=== PATIENT | female | born 1970 | race Caucasian/White ===

== ENCOUNTER 2025-01-28 09:21 | Outpatient (CLI) | payer MEDICARE, MEDICAID, SELFPAY ==
--- NOTE | ~2025-01-28 | CT_ITS ---
CT Scan of the Chest without Contrast: Clinical Indication: Nicotine dependence Technique: Contiguous sections were acquired throughout the chest without intravenous contrast. Dose reduction technique was used on this scan by utilizing automated exposure control and iterative recon struction technique. The dose-length product (DLP) was 72.86 mGy-cm. Findings: There is no evidence of any significant mediastinal, hilar or axillary lymphadenopathy. The mediastin al soft tissues appear normal. There is no evidence of pleural or pericardial effusion. The lungs are clear. No pulmonary nodules or infiltrates are noted. Images through the upper abdomen reveal no abnormalities. Impression: No significant abnormalities seen. Reviewed, dictated and finalized at location . Impression: No significant abnormalities seen.
--- OUTSIDE RECORDS SUMMARY | 2025-01-28 09:29 | XMS_ITS | Continuity of Care Document ---
Author Organization [facility] Address [address] [place] [address] Phone Care Team Providers Care Drafter Geological Name Role Phone Unavailable Unavailable Unavailable Allergies, Adverse Reactions, Alerts Substance Reaction Status Criticality No Known Drug Allergies Active No I nformation Medications Medication Instructions Dosage Effective Dates (start - stop) Status Comments amoxicillin 500 mg Cap take 1 capsule (500MG) by ORAL route 3 times every day for 10 days 500 MG - Active Vicodin ES 7.5 mg-750 mg Tab take 1 tablet by ORAL route every 4 - 6 hours as needed for pain not to exceed 5 tablets in 24hrs - Active Synthroid 50 mcg Tab take 1 tablet (50MC G) by ORAL route every day 50 MCG - Active Vicodin 5 mg-500 mg Tab VICODIN 5/500 TABLET # 30<><> 1 TAB by mouth (PO) every day.<><> As needed for pain.<><>DISPENSE: 30 day supply.<>REFILLS: 1<><>This script generated by provider NATHALY at 03/10/2009 1:33:35 PM<>Provider: KAILEE DIALLO MD<> SIGNATURE ON FILE < - Active Procedures Procedure Date Extraction erupted tooth or exposed root OFFICE OUTPT NEW 20 MINUTES COLLECTION OF VENOUS BLOOD BY AUSTINIPUNCTU RE COMPRE METAB PANEL BLOOD COUNT; COMPLETE (CBC), AUTOMATED (HGB, HCT, RBC, WBC AND PLATELET COUNT) ANTINUCLEAR ANTIBODIES (BOLIVAR); 9 RHEUMATOID FACTOR; QUANTITATIVE Jalil-10-2 009 SEDIMENTATION RATE, ERYTHROCYTE; AUTOMAT ED CYCLIC CITRULLINATED PEPTIDE (CCP), ANTI BODY CYANOCOBALAMIN (VITAMIN B-12); 09 FOLIC ACID; SERUM CALCIFEDIOL (25-OH VITAMIN D-3) 009 THYROID STIMULATING HORMONE (TSH) Advance Directives Directive Yes / No Effective Date File Name No Information Encounters Encounter Description Practice Location Reason(s) For Visit Diagnoses Date Provider Providers Copied on Encounter [facility] , [address], [place], [place], [id number], tel:[phone] [facility] No Information No Information [facility] , [address], [place], [place], [address], tel:[phone] [facility] No Information No Information OFFICE OUTPT NEW 20 MINUTES [facility] , [address], [place], [place], [id number], tel:[phone] [facility] Pain in joint involving multiple sites No Information [facility] , [address], [place], [place], [address], tel:[phone] [facility] No Information No Information Family History Family Member Type Diagnosis Age At Onset No Information Payers Payer name Insurance type Covered republican ID Authoriza tion(s) No Information Social History Type Description Quantity Date Captured Comments Sex Female Smoking Status No Information Chief Complaint And Reason For Visit No Information Reason For Referral Reason For Referral No Information Plan Of Treatment Date Type Action Status Goal BMP fasting. Due on 009 due Goal ALT. Due on due Goal AST. Due on due History Of Present Illness Encounter Date Complaint History Of Prese nt Illness No Information Functional Status Date Functional Assessmen t No Information Instructions Date Instruction Additional Infor mation No Information Assessments Type Assessment Date No Information Patient Care Teams Name Effective Dates (start - stop) Status Members No Information
--- OUTSIDE RECORDS SUMMARY | 2025-01-28 09:29 | XMS_ITS | Referral Summary ---
Author Organization [facility] Address [address] [place] [address] Care Team Providers Care Supervisory Investigative Specialist Name Role Phone Figueroa Thompson MD Primary Care Provider Allergies No known active allergies Medications HYDROcodone-ac etaminophen (NORCO) 10-325 mg per tabletIndicati ons:Pain 0 04/20/20 18 Active levothyroxine (SYNTHROID, LEVOTHROID) 175 mcg tablet Activ e ALPRAZolam (XANAX) 1 mg tabletIndicati ons:anxiety Take 1 tablet (1 mg total) by mouth 3 (three) times a day as needed for anxiety. 90 tablet 5 05/11/20 18 Active loperamide (IMODIUM) 2 mg capsule Take 1 capsule (2 mg total) by mouth 4 (four) times a day as needed for diarrhea. 12 capsule 05/19/20 18 Active azithromycin (ZITHROMAX) 250 mg tablet azithromycin 250 mg tablet Active LORazepam (ATIVAN) 0.5 mg tablet every 8 hours Active LOTEMAX 0.5 % drops,gel 12/19/19 19 Active polyethylene glycol (COLYTE) 240-22.72-6.72 -5.84 gram solution peg 3350 240 gram-electrolytes 22.72 gram-6.72 g-5.84 g powdr for soln Active sucralfate (CARAFATE) 1 gram tablet sucralfate 1 gram tablet Active sulfamethoxazo le-trimethopri m (BACTRIM DS,SEPTRA DS) 800-160 mg per tablet sulfamethoxazole 800 mg-trimethoprim 160 mg tablet Active carisoprodol (SOMA) 350 mg tablet Take 1 tablet (350 mg total) by mouth 3 (three) times a day 90 tablet 5 07/05/20 19 Active gabapentin (NEURONTIN) 600 mg tablet Take 2 tablets (1,200 mg total) by mouth 3 (three) times a day 180 tablet 5 08/20/20 19 Active cyclobenzaprin e (FLEXERIL) 10 mg tablet Take 1 tablet (10 mg total) by mouth 2 (two) times a day as needed for muscle spasms 20 tablet 07/17/20 21 Active Active Problems Problem Noted Date Diagnosed Date Edema of both feet 05/11/2018 Chronic pain 05/11/2018 Social History Tobacco Use Types Packs/Day Years Used Date Smoking Tobacco: Every Day Smokeless Tobacco: Never Alcohol Use Standard Drinks/Week Comments Yes 1 (1 standard drink = 0.6 oz pur e alcohol) Comments No Sex and Gender Information Value Date Recorded Sex Assigned at Not on file Legal Sex Female 2:02 AM INDEPENDENT LIVING ADVISOR Gender Identity Not on file Sexual Orientation Not on file Last Filed Vital Signs Vital Sign Reading Time Taken Comments Blood Pressure 111/79 07/17/2021 4:35 PM INDEPENDENT LIVING ADVISOR Pulse 53 07/17/2021 4:35 PM INDEPENDENT LIVING ADVISOR Temperature 36.8 C (98.2 F) 07/17/2021 4:35 PM INDEPENDENT LIVING ADVISOR Respiratory Rate 19 07/17/2021 4:35 PM INDEPENDENT LIVING ADVISOR Oxygen Saturation 97% 07/17/2021 4:35 PM INDEPENDENT LIVING ADVISOR Inhaled Oxygen Concentration - - Weight 65.8 kg (145 lb) 07/17/2021 12:29 PM INDEPENDENT LIVING ADVISOR Height 167.6 cm (5' 6) 07/17/2021 12:29 PM INDEPENDENT LIVING ADVISOR Body Mass Index 23.4 07/17/2021 12:29 PM INDEPENDENT LIVING ADVISOR Plan of Treatment Not on file Insurance IDPA U[employer] MEDICARE ADVANTAGE MEDICARE [facility] Address: [address] [address] [place] [address] [facility] [place] [address] Care Teams Supervisory Investigative Specialist Relationship Specialty Start Date End Date Figueroa Thompson MD [address] [place] [address] PCP - General 07/17/21
--- OUTSIDE RECORDS SUMMARY | 2025-01-28 09:29 | XMS_ITS | Clinical Summary ---
Author Organization [facility] Address [address] [place] [address] Care Team Providers Care Portable Feed Mill Operator Name Role Phone Figueroa Thompson MD Primary [...] of both feet 05/11/2018 Chronic pain 05/11/2018 Surgical History Surgery Date Site/Laterality Comments HYSTERECTOMY SECTION CARPAL TUNNEL RELEASE Medical History Medical History Date Comments Fibromyalgia Neuropathy Carpal tunnel syndrome Plantar fasciitis Thyroid activity decreased Osteoarthritis Rheumatoid arthritis (HCC) Family History Medical History Relation Name Comments Arthritis Mother Family history of arthritis - (Added by TW Conv) Fibromyalgia Mother Family history of fibromyalgia - (Added by TW Conv) Arthritis Sister Family history of arthritis - (Added by TW Conv) Relation Name Status Comments Mother Sister Social History Tobacco Use Types Packs/Day Years Used Date Smoking Tobacco: Every Day Smokeless Tobacco: Never Alcohol Use Standard Drinks/Week Comments Yes 1 (1 standard drink = 0.6 oz pur e alcohol) Comments No Sex and Gender Information Value Date Recorded Sex Assigned at Not on file Legal Sex Female 2:02 AM STORAGE BATTERY CHARGER Gender Identity Not on file Sexual Orientation Not on file Obstetrics History Last Filed Vital Signs Vital Sign Reading Time Taken Comments Blood Pressure 111/79 07/17/2021 4:35 PM STORAGE BATTERY CHARGER Pulse 53 07/17/2021 4:35 PM STORAGE BATTERY CHARGER Temperature 36.8 C (98.2 F) 07/17/2021 4:35 PM STORAGE BATTERY CHARGER Respiratory Rate 19 07/17/2021 4:35 PM STORAGE BATTERY CHARGER Oxygen Saturation 97% 07/17/2021 4:35 PM STORAGE BATTERY CHARGER Inhaled Oxygen Concentration - - Weight 65.8 kg (145 lb) 07/17/2021 12:29 PM STORAGE BATTERY CHARGER Height 167.6 cm (5' 6) 07/17/2021 12:29 PM STORAGE BATTERY CHARGER Body Mass Index 23.4 07/17/2021 12:29 PM STORAGE BATTERY CHARGER Plan of Treatment Not on file Insurance IDKS [facility] MEDICARE ADVANTAGE MEDICARE IDKS [facility] MEDIC[facility] ADVANTAGE Care Teams Portable Feed Mill Operator Relationship Specialty Start Date End Date Figueroa Thompson MD [address] [facility] [place] [place] [address] [facility] - General 07/17/21
== END 2025-01-28 09:22 | disposition home or self-care (01) ==
PROVIDERS: PCP Internal Medicine; Visit Provider Internal Medicine Infectious Disease
DX: Z87.891 Personal history of nicotine dependence (principal)
CPT/HCPCS: 71250